=== PATIENT | female | born 1940 | race Hispanic/Latino ===

== ENCOUNTER 2017-05-07 12:24 | Emergency (ER) | payer MEDICARE ==
[2017-05-07 12:37] VITALS: BP 157/72
--- NOTE | 2017-05-07 16:16 | Emergency Department Report ---
HPI - General Chief Complaint: Skin/Abscess/Foreign Body Time Seen by Provider: 05/07/17 15:46 - HPI HPI: This is a 76-year-old female who presents to ED complaining of lower lip pain and swelling 1 week. Patient states she noticed a pimple on her lower lip bilaterally physical in a couple days ago it popped and she expelled some puslike discharge. Patient states she saw her primary care physician yesterday and put her on Bactrim and mupirocin ointment patient states that the lip and is not getting better it is throbbing in this acute getting bigger. She denies fevers/chills/nausea/vomiting with this abdominal pain/recent contact sash chest pains or shortness of breath with this cough/runny nose or any other problems. ED Past Medical Hx - Past Medical History Hx Heart Attack/AMI: No Hx GERD: Yes Hx Liver Disease: No Hx Renal Disease: No Hx Arthritis: Yes (IN BACKS AND HIPS) Hx Seizures: No Hx Asthma: No Hx HIV: No Additional medical history: HIGH CHOLESTEROL - Surgical History Hx Cholecystectomy: Yes (IN 1983) Hx Breast Surgery: Yes (BREAST REDUCTION IN 1987) Additional Surgical History: Stomach staple, hysterectomy, back, and Jaw surgery - Social History Smoking Status: Never Smoker Substance Use Type: None - Medications Home Medications: Home Medications Medication Instructions Recorded Confirmed Last Taken Type Lovastatin [Altoprev] 40 mg PO QPM 11/03/15 11/10/15 11/09/15 History Metoclopramide [Reglan TAB] 10 mg PO QHS 11/03/15 11/10/15 11/09/15 History Omeprazole [PriLOSEC] 40 mg PO QHS 11/03/15 11/10/15 11/09/15 History hydrOXYzine PAMOATE [Vistaril] 25 mg PO QHS 11/03/15 11/10/15 11/09/15 History traZODone [Desyrel] 100 mg PO QHS 11/03/15 11/10/15 11/09/15 History Sulfamethoxazole/Trimethoprim 1 each PO BID #20 tablet 01/14/16 Unknown Rx [Bactrim DS TAB] traMADol [Ultram] 50 mg PO Q6HR PRN #15 tablet 01/14/16 Unknown Rx Cephalexin [Keflex] 500 mg PO BID #14 capsule 05/07/17 Unknown Rx Ibuprofen [Motrin 600 MG tab] 600 mg PO Q8H PRN #30 tablet 05/07/17 Unknown Rx ED Review of Systems ROS: Stated complaint: BUMP ON LIP Other details as noted in HPI Constitutional: denies: chills, fever Eyes: denies: eye pain, eye discharge, vision change ENT: denies: ear pain, throat pain Respiratory: denies: cough, shortness of breath, wheezing Cardiovascular: denies: chest pain, palpitations Endocrine: no symptoms reported Gastrointestinal: denies: abdominal pain, nausea, vomiting, diarrhea, constipation, hematemesis Genitourinary: denies: urgency, dysuria, discharge Musculoskeletal: denies: back pain, joint swelling, arthralgia Skin: denies: rash, lesions Neurological: denies: headache, weakness, paresthesias Psychiatric: denies: anxiety, depression Hematological/Lymphatic: denies: easy bleeding, easy bruising Physical Exam - Physical Exam Vital Signs: Vital Signs 05/07/17 12:31 Temperature 97.9 F Pulse Rate 102 H Respiratory 18 Rate Blood Pressure 157/72 O2 Sat by Pulse 99 Oximetry Physical Exam: GENERAL: Alert and oriented x3, no apparent distress, Normal Gait, atraumatic. HEAD: Head is normocephalic and a-traumatic. NOSE: Nose symetrical, Nontender,Nares appeared normal. MOUTH:Mouth is well hydrated and without lesions. Lower lip erythematous, tender to palpation, swollen, Tonsils nonerythematous or swollen, Uvula midline , Tongue not elevated. Mucous membranes are moist. Posterior pharynx clear, no exudate or lesions. Patent airways. NECK: Supple. Non edematous, No lymphadenopathy or thyromegaly. LUNGS: Symetrical with respiration, No wheezing, no rales or crackles, CTAB. HEART: S1, S2 present, regular rate and rhythm without murmur, no rubs, no gallops. Non tender to palpation PSYCHIATRIC: Mood is congruent with affect, denies suicidal or homicidal ideations. SKIN: Warm and dry, No lesions, No ulceration or induration present. ED Course Vital Signs 05/07/17 12:31 Temperature 97.9 F Pulse Rate 102 H Respiratory 18 Rate Blood Pressure 157/72 O2 Sat by Pulse 99 Oximetry ED Medical Decision Making - Medical Decision Making 76 [id number] female presents to a lower lip abscess/cellulitis ED course: Applied warm compresses to the lower lip for about 10 minutes. Discussed the patient continued taken medication applying heat compress Discussed discontinue Bactrim and start Keflex. Vital signs are normal patient is in no acute distress. Critical care attestation.: If time is entered above; I have spent that time in minutes in the direct care of this critically ill patient, excluding procedure time. ED Disposition Clinical Impression: Cellulitis of lower limb Qualifiers: Laterality: unspecified laterality Qualified Code(s): L03.119 - Cellulitis of unspecified part of limb Disposition: DC-01 TO HOME OR SELFCARE Is pt being admited?: No Does the pt Need Aspirin: No Condition: Stable Instructions: Cellulitis (ED), Abscess (ED) Additional Instructions: Continue to apply warm compress. Follow-up to primary care physician for wound check in 3-5 days Prescriptions: Cephalexin [Keflex] 500 mg PO BID #14 capsule Ibuprofen [Motrin 600 MG tab] 600 mg PO Q8H PRN #30 tablet PRN Reason: Pain Referrals: EROS CARROLL MD [Primary Care Provider] - 3-5 Days Forms: Accompanied Note, Work/School Release Form(ED) Time of Disposition: 16:24
== END 2017-05-07 17:05 | disposition home or self-care (01) ==
LOC: ED 12:24
DX: L03.119 Cellulitis of unspecified part of limb (principal); K21.9 Gastro-esophageal reflux disease without esophagitis; M19.90 Unspecified osteoarthritis, unspecified site; E78.00 Pure hypercholesterolemia, unspecified
CPT/HCPCS: 99282

== ENCOUNTER 2018-07-01 06:51 | Outpatient (CLI) | payer MEDICARE ==
--- NOTE | 2018-07-01 13:38 | Magnetic Resonance Report ---
MRI LUMBAR SPINE WITHOUT CONTRAST: 07/01/18 CLINICAL: Low back pain. TECHNIQUE: Sagittal and axial T1 and T2, and sagittal STIR sequences on a 1.5 [place] magnet. FINDINGS: Normal vertebral body height. Grade I L3-4 retrolisthesis and mild L3-4 disc space narrowing with vacuum disc phenomenon. The rest of the bodies are in normal alignment. The overall marrow signal is normal. Decreased T2 disc signal at most levels and most pronounced at L2-3, L3-4 and L4-5. Status post midline decompression laminectomy L4 and L5 levels. L1-2: Intact. L2-3: Mild circumferential disc bulge. No neural foraminal stenosis. L3-4: Degeneration of the disc with moderate circumferential disc bulge and vacuum disc phenomenon. Mild bilateral facet hypertrophy and ligamentum flavum hypertrophy which contribute to mild spinal canal stenosis and moderate bilateral neural foraminal stenosis. L4-5: Intact disc. Mild bilateral facet hypertrophy and facet joint fluid. No neural foraminal stenosis. L5-S1: Intact. IMPRESSION: 1. Status post midline decompression laminectomy at L4 and L5 levels. Minimal postsurgical scar. 2. L3-4 degenerative disc disease with grade I L3-4 retrolisthesis. 3. Moderate bilateral neural foraminal stenosis and mild spinal canal stenosis at L3-4.
== END 2018-07-01 06:52 | disposition home or self-care (01) ==
LOC: MRI 06:51
PROVIDERS: ATTEND Orthopaedic Surgery Sports Medicine
DX: M51.36 Other intervertebral disc degeneration, lumbar region (principal); M48.061 Spinal stenosis, lumbar region without neurogenic claudication; E78.00 Pure hypercholesterolemia, unspecified; K21.9 Gastro-esophageal reflux disease without esophagitis; M19.90 Unspecified osteoarthritis, unspecified site; Z98.890 Other specified postprocedural states; Z90.710 Acquired absence of both cervix and uterus
CPT/HCPCS: 72148

== ENCOUNTER 2019-09-05 14:39 | Emergency (ER) | payer MEDICARE ==
[2019-09-05 14:51] VITALS: BP 124/82
--- NOTE | 2019-09-05 14:54 | Event Note ---
ED Screening Note ED Screening Note: saw her PCP and was given pain pills left knee pain that began a week ago states pain radiates down the leg no edema of the leg no fall or injury This initial assessment/diagnostic orders/clinical plan/treatment(s) is/are subject to change based on patients health status, clinical progression and re-assessment by fellow clinical providers in the ED. Further treatment and workup at subsequent clinical providers discretion. Patient/guardian urged not to elope from the ED as their condition may be serious if not clinically assessed and managed. Initial orders include: XR left knee
--- NOTE | 2019-09-05 15:54 | XRay Report ---
LEFT KNEE 3 VIEW(S) INDICATION / CLINICAL INFORMATION: left knee pain COMPARISON: None available. FINDINGS: BONES / JOINT(S): No acute fracture or subluxation. No significant arthritis. SOFT TISSUES: No significant abnormality. ADDITIONAL FINDINGS: None. Signer Name: Aamir Lopez MD Signed: 09/05/2019 3:50 PM Workstation Name: [id number]
--- NOTE | 2019-09-05 16:19 | Emergency Department Report ---
ED Extremity Problem HPI - General Chief complaint: Extremity Injury, Lower Stated complaint: LEG/KNEE PAIN/SHOULDER Time Seen by Provider: 09/05/19 14:52 Source: patient Mode of arrival: Ambulatory Limitations: Physical Limitation - History of Present Illness Initial comments: 79-year-old female presents to the emergency room for left knee pain radiates to her foot. Patient states that she has seen her primary care provider and he placed her on tramadol. Patient states that the tramadol does not help. Patient reports she is try CBD cream as well as CBD oral with no significant improvement. Patient denies any trauma no falls no near falls. MD Complaint: extremity pain Onset/Timin -: week(s) Location: left, knee History of Same: Yes Severity scale (0 -10): 10 Quality: aching, other (stiffness) Consistency: intermittent Improves with: nothing Worsens with: other (eating up from sitting position) - Related Data Home Medications Medication Instructions Recorded Confirmed Last Taken Lovastatin [Altoprev] 40 mg PO QPM 11/03/15 11/10/15 11/09/15 Metoclopramide [Reglan TAB] 10 mg PO QHS 11/03/15 11/10/15 11/09/15 Omeprazole [PriLOSEC] 40 mg PO QHS 11/03/15 11/10/15 11/09/15 hydrOXYzine PAMOATE [Vistaril] 25 mg PO QHS 11/03/15 11/10/15 11/09/15 traZODone [Desyrel] 100 mg PO QHS 11/03/15 11/10/15 11/09/15 Previous Rx's Medication Instructions Recorded Last Taken Type Sulfamethoxazole/Trimethoprim 1 each PO BID #20 tablet 01/14/16 Unknown Rx [Bactrim DS TAB] traMADoL [Ultram] 50 mg PO Q6HR PRN #15 tablet 01/14/16 Unknown Rx Cephalexin [Keflex] 500 mg PO BID #14 capsule 05/07/17 Unknown Rx Ibuprofen [Motrin 600 MG tab] 600 mg PO Q8H PRN #30 tablet 05/07/17 Unknown Rx Allergies Allergy/AdvReac Type Severity Reaction Status Date / Time azithromycin Allergy Itching Verified 05/07/17 12:37 [From Zithromax Z-Jean] Penicillins Allergy Hives Verified 05/07/17 12:37 codeine AdvReac Swelling Verified 05/07/17 12:37 ED Review of Systems ROS: Stated complaint: LEG/KNEE PAIN/SHOULDER Other details as noted in HPI Comment: All other systems reviewed and negative ED Past Medical Hx - Past Medical History Previous Medical History?: Yes Hx Heart Attack/AMI: No Hx GERD: Yes Hx Liver Disease: No Hx Renal Disease: No Hx Arthritis: Yes (IN BACKS AND HIPS) Hx Seizures: No Hx Asthma: No Hx HIV: No Additional medical history: HIGH CHOLESTEROL - Surgical History Past Surgical History?: Yes Hx Cholecystectomy: Yes (IN 1983) Hx Breast Surgery: Yes (BREAST REDUCTION IN 1987) Additional Surgical History: Stomach staple, hysterectomy, back, and Jaw surgery - Social History Smoking Status: Never Smoker Substance Use Type: Prescribed - Medications Home Medications: Home Medications Medication Instructions Recorded Confirmed Last Taken Type Lovastatin [Altoprev] 40 mg PO QPM 11/03/15 11/10/15 11/09/15 History Metoclopramide [Reglan TAB] 10 mg PO QHS 11/03/15 11/10/15 11/09/15 History Omeprazole [PriLOSEC] 40 mg PO QHS 11/03/15 11/10/15 11/09/15 History hydrOXYzine PAMOATE [Vistaril] 25 mg PO QHS 11/03/15 11/10/15 11/09/15 History traZODone [Desyrel] 100 mg PO QHS 11/03/15 11/10/15 11/09/15 History Sulfamethoxazole/Trimethoprim 1 each PO BID #20 tablet 01/14/16 Unknown Rx [Bactrim DS TAB] traMADoL [Ultram] 50 mg PO Q6HR PRN #15 tablet 01/14/16 Unknown Rx Cephalexin [Keflex] 500 mg PO BID #14 capsule 05/07/17 Unknown Rx Ibuprofen [Motrin 600 MG tab] 600 mg PO Q8H PRN #30 tablet 05/07/17 Unknown Rx ED Physical Exam - General Limitations: Physical Limitation General appearance: alert, in no apparent distress - Head Head exam: Present: atraumatic, normocephalic - ENT ENT exam: Present: mucous membranes moist - Neck Neck exam: Present: normal inspection - Expanded Lower Extremity Exam Left Knee exam: Present: full ROM. Absent: tenderness, swelling, dislocation Lower Leg exam: Present: normal inspection, full ROM. Absent: tenderness, swelling Foot/Toe exam: Present: normal inspection, full ROM. Absent: tenderness - Back Exam Back exam: Present: normal inspection - Neurological Exam Neurological exam: Present: alert, oriented X3 - Psychiatric Psychiatric exam: Present: normal affect, normal mood - Skin Skin exam: Present: warm, dry, intact, normal color. Absent: rash ED Course Vital Signs 09/05/19 09/05/19 14:48 15:57 Temperature 97.6 F Pulse Rate 107 H Respiratory 20 18 Rate Blood Pressure 124/82 O2 Sat by Pulse 95 Oximetry ED Medical Decision Making - Medical Decision Making 79-year-old female presents to the emergency room for left knee pain radiates to her foot. Patient states that she has seen her primary care provider and he placed her on tramadol. Patient states that the tramadol does not help. Patient reports she is try CBD cream as well as CBD oral with no s ignificant improvement. Patient denies any trauma no falls no near falls. Critical care attestation.: If time is entered above; I have spent that time in minutes in the direct care of this critically ill patient, excluding procedure time. ED Disposition Clinical Impression: Left knee pain Disposition: DC-01 TO HOME OR SELFCARE Is pt being admited?: No Does the pt Need Aspirin: No Condition: Stable Instructions: Arthralgia (ED) Referrals: NADIA RAHMAN MD [Staff Physician] - 3-5 Days
== END 2019-09-05 16:50 | disposition home or self-care (01) ==
LOC: ED 14:39
DX: M25.562 Pain in left knee (principal); I10 Essential (primary) hypertension; K21.9 Gastro-esophageal reflux disease without esophagitis; M19.90 Unspecified osteoarthritis, unspecified site; E78.00 Pure hypercholesterolemia, unspecified; Z90.710 Acquired absence of both cervix and uterus; Z90.49 Acquired absence of other specified parts of digestive tract; Z79.899 Other long term (current) drug therapy; Z88.0 Allergy status to penicillin; Z88.1 Allergy status to other antibiotic agents; Z88.6 Allergy status to analgesic agent

== ENCOUNTER 2019-12-03 22:44 | Emergency (ER) | payer MEDICARE ==
[2019-12-03] MEDS ORDERED: ASPIRIN 325 MG TAB PO ONE (23:29)
--- NOTE | 2019-12-03 23:56 | XRay Report ---
CHEST 1 VIEW INDICATION: Chest Pain. COMPARISON: None. FINDINGS: Support devices: None. Heart: Normal. Lungs/Pleura: There are low lung volumes with atelectatic changes in the bases. IMPRESSION: 1. No acute findings. Signer Name: Jp Rosenthal MD Signed: 12/03/2019 11:52 PM Workstation Name: [id number]
--- NOTE | 2019-12-04 00:25 | Emergency Department Report ---
ED General Adult HPI - General Chief complaint: Abdominal Pain Stated complaint: BACK PAIN CHEST PAIN Time Seen by Provider: 12/04/19 00:22 Source: patient Mode of arrival: Ambulatory Limitations: Physical Limitation - History of Present Illness Initial comments: Patient presents to the emergency department with a chief complaint of 2 days of epigastric abdominal pain radiating to her back. Patient says she has a history of a hiatal hernia with repair in the early and this feels very similar to the pain from her hiatal hernia. Patient also states that she had her gallbladder removed several years ago. Patient describes the pain as sharp in nature and denies anything making it better or worse. Patient denies jaren chest pain. Patient also denies shortness of breath or headache. The pain has been continuous in nature for the last 2 days. -: Sudden, days(s) (2) Location: abdomen Radiation: back Severity scale (0 -10): 7 Quality: sharp Consistency: constant Improves with: none Worsens with: none Associated Symptoms: denies other symptoms Treatments Prior to Arrival: none - Related Data Home Medications Medication Instructions Recorded Confirmed Last Taken Lovastatin [Altoprev] 40 mg PO QPM 11/03/15 11/10/15 11/09/15 Metoclopramide [Reglan TAB] 10 mg PO QHS 11/03/15 11/10/15 11/09/15 Omeprazole [PriLOSEC] 40 mg PO QHS 11/03/15 11/10/15 11/09/15 hydrOXYzine PAMOATE [Vistaril] 25 mg PO QHS 11/03/15 11/10/15 11/09/15 traZODone [Desyrel] 100 mg PO QHS 11/03/15 11/10/15 11/09/15 Previous Rx's Medication Instructions Recorded Last Taken Type Sulfamethoxazole/Trimethoprim 1 each PO BID #20 tablet 01/14/16 Unknown Rx [Bactrim DS TAB] traMADoL [Ultram] 50 mg PO Q6HR PRN #15 tablet 01/14/16 Unknown Rx Cephalexin [Keflex] 500 mg PO BID #14 capsule 05/07/17 Unknown Rx Ibuprofen [Motrin 600 MG tab] 600 mg PO Q8H PRN #30 tablet 05/07/17 Unknown Rx PHENObarb/HYOSCY/ATROPINE/SCOP 16.2 mg PO BID #120 elixir 12/04/19 Unknown Rx [ Elixir] Pantoprazole [Protonix TAB] 20 mg PO QDAY #14 tablet. 12/04/19 Unknown Rx Allergies Allergy/AdvReac Type Severity Reaction Status Date / Time azithromycin Allergy Itching Verified 05/07/17 12:37 [From Zithromax Z-Jean] Penicillins Allergy Hives Verified 05/07/17 12:37 prednisone Allergy Unknown Verified 12/03/19 22:54 codeine AdvReac Swelling Verified 05/07/17 12:37 ED Review of Systems ROS: Stated complaint: BACK PAIN CHEST PAIN Other details as noted in HPI Comment: All other systems reviewed and negative Constitutional: denies: chills, fever Eyes: denies: eye pain, eye discharge, vision change ENT: denies: ear pain, throat pain Respiratory: denies: cough, shortness of breath, wheezing Cardiovascular: denies: chest pain, palpitations Endocrine: no symptoms reported Gastrointestinal: abdominal pain. denies: nausea, diarrhea Genitourinary: denies: urgency, dysuria, discharge Musculoskeletal: denies: back pain, joint swelling, arthralgia Skin: denies: rash, lesions Neurological: denies: headache, weakness, paresthesias Psychiatric: denies: anxiety, depression Hematological/Lymphatic: denies: easy bleeding, easy bruising ED Past Medical Hx - Past Medical History Previous Medical History?: Yes Hx Heart Attack/AMI: No Hx GERD: Yes Hx Liver Disease: No Hx Renal Disease: No Hx Arthritis: Yes (IN BACKS AND HIPS) Hx Seizures: No Hx Asthma: No Hx HIV: No Additional medical history: HIGH CHOLESTEROL, Hiatal hernia, IBS - Surgical History Past Surgical History?: Yes Hx Cholecystectomy: Yes (IN 1983) Hx Breast Surgery: Yes (BREAST REDUCTION IN 1987) Additional Surgical History: Stomach staple, hysterectomy, back, and Jaw surgery - Social History Smoking Status: Never Smoker Substance Use Type: None - Medications Home Medications: Home Medications Medication Instructions Recorded Confirmed Last Taken Type Lovastatin [Altoprev] 40 mg PO QPM 11/03/15 11/10/15 11/09/15 History Metoclopramide [Reglan TAB] 10 mg PO QHS 11/03/15 11/10/15 11/09/15 History Omeprazole [PriLOSEC] 40 mg PO QHS 11/03/15 11/10/15 11/09/15 History hydrOXYzine PAMOATE [Vistaril] 25 mg PO QHS 11/03/15 11/10/15 11/09/15 History traZODone [Desyrel] 100 mg PO QHS 11/03/15 11/10/15 11/09/15 History Sulfamethoxazole/Trimethoprim 1 each PO BID #20 tablet 01/14/16 Unknown Rx [Bactrim DS TAB] traMADoL [Ultram] 50 mg PO Q6HR PRN #15 tablet 01/14/16 Unknown Rx Cephalexin [Keflex] 500 mg PO BID #14 capsule 05/07/17 Unknown Rx Ibuprofen [Motrin 600 MG tab] 600 mg PO Q8H PRN #30 tablet 05/07/17 Unknown Rx PHENObarb/HYOSCY/ATROPINE/SCOP 16.2 mg PO BID #120 elixir 12/04/19 Unknown Rx [ Elixir] Pantoprazole [Protonix TAB] 20 mg PO QDAY #14 tablet. 12/04/19 Unknown Rx ED Physical Exam - General Limitations: Physical Limitation General appearance: alert, in no apparent distress - Head Head exam: Present: atraumatic, normocephalic - Eye Eye exam: Present: normal appearance, PERRL, EOMI - ENT ENT exam: Present: mucous membranes moist - Neck Neck exam: Present: normal inspection - Respiratory Respiratory exam: Present: normal lung sounds bilaterally. Absent: respiratory distress - Cardiovascular Cardiovascular Exam: Present: regular rate, normal rhythm. Absent: systolic murmur, diastolic murmur, rubs, gallop - GI/Abdominal GI/Abdominal exam: Present: soft, tenderness (Tender to palpation epigastric region), normal bowel sounds. Absent: distended - Extremities Exam Extremities exam: Present: normal inspection - Back Exam Back exam: Present: normal inspection - Neurological Exam Neurological exam: Present: alert, oriented X3, CN II-XII intact. Absent: motor sensory deficit - Psychiatric Psychiatric exam: Present: normal affect, normal mood - Skin Skin exam: Present: warm, dry, intact, normal color. Absent: rash ED Course Vital Signs 12/03/19 12/04/19 22:56 00:20 Temperature 98.0 F Pulse Rate 83 77 Respiratory 18 16 Rate Blood Pressure 183/116 Blood Pressure 157/82 [Left] O2 Sat by Pulse 96 97 Oximetry ED Medical Decision Making - Lab Data Result diagrams: 12/04/19 00:18 12/04/19 00:18 Lab Results 12/04/19 12/04/19 12/04/19 Range/Units 00:18 00:18 00:25 WBC 10.4 (4.5-11.0) K/mm3 RBC 5.31 H (3.65-5.03) M/mm3 Hgb 14.7 H (10.1-14.3) gm/dl Hct 44.8 H (30.3-42.9) % MCV 84 (79-97) fl MCH 28 (28-32) pg MCHC 33 (30-34) % RDW 14.8 (13.2-15.2) % Plt Count 336 (140-440) K/mm3 Lymph % (Auto) 40.7 H (13.4-35.0) % [place] % (Auto) 8.4 H (0.0-7.3) % Eos % (Auto) 2.1 (0.0-4.3) % Baso % (Auto) 0.2 (0.0-1.8) % Lymph # 4.2 (1.2-5.4) K/mm3 [place] # 0.9 H (0.0-0.8) K/mm3 Eos # 0.2 (0.0-0.4) K/mm3 Baso # 0.0 (0.0-0.1) K/mm3 Seg Neutrophils % 48.6 (40.0-70.0) % Seg Neutrophils # 5.0 (1.8-7.7) K/mm3 Sodium 141 (137-145) mmol/L Potassium 4.2 (3.6-5.0) mmol/L Chloride 102.4 (98-107) mmol/L Carbon Dioxide 23 (22-30) mmol/L Anion Gap 20 mmol/L BUN 14 (7-17) mg/dL Creatinine 0.9 (0.7-1.2) mg/dL Estimated GFR > 60 ml/min BUN/Creatinine Ratio 16 % Glucose 103 H (65-100) mg/dL Calcium 9.6 (8.4-10.2) mg/dL Total Bilirubin 0.20 (0.1-1.2) mg/dL Direct Bilirubin < 0.2 (0-0.2) mg/dL Indirect Bilirubin 0.0 mg/dL AST 28 (5-40) units/L ALT 30 (7-56) units/L Alkaline Phosphatase 101 (35-129) units/L Troponin T < 0.010 (0.00-0.029) ng/mL NT-Pro-B Natriuret Pep 76.56 (0-900) pg/mL Total Protein 6.9 (6.3-8.2) g/dL Albumin 4.2 (3.9-5) g/dL Albumin/Globulin Ratio 1.6 % Lipase (13-60) units/L 12/04/19 Range/Units 00:53 WBC (4.5-11.0) K/mm3 RBC (3.65-5.03) M/mm3 Hgb (10.1-14.3) gm/dl Hct (30.3-42.9) % MCV (79-97) fl MCH (28-32) pg MCHC (30-34) % RDW (13.2-15.2) % Plt Count (140-440) K/mm3 Lymph % (Auto) (13.4-35.0) % [place] % (Auto) (0.0-7.3) % Eos % (Auto) (0.0-4.3) % Baso % (Auto) (0.0-1.8) % Lymph # (1.2-5.4) K/mm3 [place] # (0.0-0.8) K/mm3 Eos # (0.0-0.4) K/mm3 Baso # (0.0-0.1) K/mm3 Seg Neutrophils % (40.0-70.0) % Seg Neutrophils # (1.8-7.7) K/mm3 Sodium (137-145) mmol/L Potassium (3.6-5.0) mmol/L Chloride (98-107) mmol/L Carbon Dioxide (22-30) mmol/L Anion Gap mmol/L BUN (7-17) mg/dL Creatinine (0.7-1.2) mg/dL Estimated GFR ml/min BUN/Creatinine Ratio % Glucose (65-100) mg/dL Calcium (8.4-10.2) mg/dL Total Bilirubin (0.1-1.2) mg/dL Direct Bilirubin (0-0.2) mg/dL Indirect Bilirubin mg/dL AST (5-40) units/L ALT (7-56) units/L Alkaline Phosphatase (35-129) units/L Troponin T (0.00-0.029) ng/mL NT-Pro-B Natriuret Pep (0-900) pg/mL Total Protein (6.3-8.2) g/dL Albumin (3.9-5) g/dL Albumin/Globulin Ratio % Lipase 19 (13-60) units/L - EKG Data -: EKG Interpreted by Me EKG shows normal: sinus rhythm Rate: normal - Radiology Data Radiology results: report reviewed - Medical Decision Making Reexamination of the patient at 2 AM patient informs me that she ate 3 biscuits" large and strawberry jam the night before having this abdominal pain. Patient also states she has a long history of GERD, that her childhood was used to get prescriptions of . Results discussed with patient and plan of care. Critical care attestation.: If time is entered above; I have spent that time in minutes in the direct care of this critically ill patient, excluding procedure time. ED Disposition Clinical Impression: Abdominal pain Disposition: DC-01 TO HOME OR SELFCARE Is pt being admited?: No Does the pt Need Aspirin: No Condition: Stable Instructions: Abdominal Pain (ED) Additional Instructions: return if worse Please do not take your acid reflux medication with the Protonix Taper Tums for 14 days before starting your previous medication Prescriptions: PHENObarb/HYOSCY/ATROPINE/SCOP [ Elixir] 16.2 mg PO BID #120 elixir Pantoprazole [Protonix TAB] 20 mg PO QDAY #14 tablet. Referrals: PRIMARY CAREMD [Primary Care Provider] - 3-5 Days [facility] [Provider Group] - 3-5 Days [facility] [Provider Group] - 3-5 Days Time of Disposition: 02:19
[2019-12-04] MEDS ORDERED: SODIUM CHLORIDE 0.9% 1000 ML 1,000 ML IV ONE (00:37)
[2019-12-04 00:53] LABS: Basophils % (Auto) 0.2 % (0.0-1.8); Eosinophils # (Auto) 0.2 K/mm3 (0.0-0.4); Eosinophils % (Auto) 2.1 % (0.0-4.3); Hematocrit 44.8 % (30.3-42.9); Hemoglobin 14.7 gm/dl (10.1-14.3); Lymphocytes # (Auto) 4.2 K/mm3 (1.2-5.4); Lymphocytes % (Auto) 40.7 % (13.4-35.0); Mean Corpuscular HGB Conc 33 % (30-34); Mean Corpuscular Volume 84 fl (79-97); Monocytes # (Auto) 0.9 K/mm3 (0.0-0.8); Monocytes % (Auto) 8.4 % (0.0-7.3); Platelet Count 336 K/mm3 (140-440); Red Blood Count 5.31 M/mm3 (3.65-5.03); Red Cell Distribution Width 14.8 % (13.2-15.2)
[2019-12-04 01:02] LABS: Alanine Aminotransferase 30 units/L (7-56); Albumin 4.2 g/dL (3.9-5)
[2019-12-04 01:06] LABS: Bilirubin,Direct < 0.2 mg/dL (0-0.2)
[2019-12-04 01:07] LABS: BUN/Creatinine Ratio 16; Blood Urea Nitrogen 14 mg/dL (7-17); Calcium 9.6 mg/dL (8.4-10.2); Hemolysis Index 10
--- NOTE | 2019-12-04 02:08 | Cat Scan Report ---
CT ABDOMEN AND PELVIS WITH IV CONTRAST INDICATION: EPIGASTRIC AB PAIN. COMPARISON: None available. TECHNIQUE: All CT scans at this facility use dose modulation, automated exposure control, iterative reconstructi on or weight based dosing, when appropriate, to reduce radiation dose to as low as reasonably achieva ble. FINDINGS: Lung Bases: No acute findings. Skeletal System: No acute abnormality. ABDOMEN: Liver: Mild hepatic steatosis. Gallbladder: Removed. Bile Ducts: No significant abnormality. Pancreas: No significant abnormality. 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 Adrenals: No significant abnormality. Right Kidney: No significant abnormality. Left Kidney: No significant abnormality. Upper GI tract: There are postsurgical changes in the stomach. No dilated loops of small bowel. Lymph Nodes: No significant adenopathy. Aorta: No significant abnormality. Additional Findings: There is rectus diastases. PELVIS: Colon: No acute abnormality. Diverticulosis is noted. Urinary Bladder and Distal Ureters: No significant abnormality. Appendix: No significant abnormality. Lymph Nodes: No significant adenopathy. Additional Findings: None. IMPRESSION: 1. No acute process in the abdomen or pelvis. 2. Esophagus is fluid-filled which could be seen in the setting of reflux or dysmotility. Incidental findings, as above. Signer Name: Jp Rosenthal MD Signed: 12/04/2019 2:03 AM Workstation Name: [id number]
[2019-12-04] MEDS ORDERED: ALUM-MAG HYDROXIDE-SIMETHICONE 200-200-20MG/5ML ORAL LIQD 30 ML PO ONE (02:15)
[2019-12-04] MEDS ORDERED: LIDOCAINE VISCOUS 2% 15 ML ORAL LIQD PO ONE (02:15)
[2019-12-04] MEDS ORDERED: PANTOPRAZOLE 40 MG INJ IV ONE (02:15)
[2019-12-04 03:20] VITALS: BP 161/96
== END 2019-12-04 02:50 | disposition home or self-care (01) ==
LOC: ED 22:44
DX: R10.13 Epigastric pain (principal); K21.9 Gastro-esophageal reflux disease without esophagitis; M19.90 Unspecified osteoarthritis, unspecified site; Z90.49 Acquired absence of other specified parts of digestive tract; Z90.710 Acquired absence of both cervix and uterus; Z79.899 Other long term (current) drug therapy; Z88.0 Allergy status to penicillin; Z88.1 Allergy status to other antibiotic agents; Z88.8 Allergy status to other drugs, medicaments and biological substances
CPT/HCPCS: 36415; 71045; 74177; 80048; 80076; 83690; 83880; 84484; 85025; 93005; 93010; 96374; 99285; C9113; J7030; Q9967